=== PATIENT | female | born 1950 | race Two or more races ===

== ENCOUNTER 2016-06-29 22:07 | Emergency (ER) | payer MEDICAID ==
[2016-06-29] MEDS ORDERED: KETOROLAC TROMETHAMINE 30 MG/ML 1 ML VIAL ONE (23:19)
[2016-06-29] MEDS ORDERED: DEXAMETHASONE SOD PHOS 10 MG/1 ML VIAL ONE (23:19)
[2016-06-29] MEDS ORDERED: DIPHENHYDRAMINE HCL 50 MG/1 ML VIAL ONE (23:19)
[2016-06-29] MEDS ORDERED: PROCHLORPERAZINE MALEATE 10 MG TABLET ONE (23:20)
[2016-06-29] MEDS ORDERED: LACTATED RINGERS 1,000 ML ONE (23:20)
[2016-06-29] MEDS ORDERED: PROCHLORPERAZINE 5 MG/ML 2 ML VIAL ONE (23:30)
== END 2016-06-30 01:24 | disposition home or self-care (01) ==
LOC: ED 22:07
DX: R51 Headache (principal); I10 Essential (primary) hypertension; Z79.899 Other long term (current) drug therapy
CPT/HCPCS: 96375 ×3; 99283 ×2; 96374; 96361 ×2; J1200; J0780; J1100; J1885; J7120